=== PATIENT | male | born 1995 | race American Indian/Alaskan Native ===

== ENCOUNTER 2017-09-12 11:27 | Emergency (ER) | payer MEDICAID, OTHER ==
--- NOTE | 2017-09-12 11:51 | EDM.PDOC ---
ED HPI GENERAL MEDICAL PROBLEM - General Chief Complaint: Genitourinary Problem Stated Complaint: [id number] BLADDER PAIN Time Seen by Provider: 09/12/17 11:35 Source of Information: Reports: Patient History Limitations: Reports: No Limitations - History of Present Illness INITIAL COMMENTS - FREE TEXT/NARRATIVE: This 22 yo male patient reports to the ED with lower abdominal pain/pressure over the past 2 days. The patient reports he has not been able to urinate over the past 2 days and has not had a bowel movement. The patient denies any new sexual partners and denies any previous similar episodes. The patient was accompanied in the ED with his girlfriend. Onset: Gradual Duration: Day(s): (2), Constant, Getting Worse Location: Reports: Abdomen (pain and pressure) Quality: Reports: Ache, Pressure Severity: Severe Improves with: Reports: None Worsens with: Reports: Other (palpation) Bladder Pain Score (Numeric/FACES): 8 - Related Data Allergies Allergy/AdvReac Type Severity Reaction Status Date / Time No Known Allergies Allergy Verified 09/12/17 11:35 Home Meds: Home Meds . [No Known Home Meds] 09/12/17 [History] ED ROS GENERAL - Review of Systems Review Of Systems: ROS reveals no pertinent complaints other than HPI. ED EXAM, RENAL/ - Physical Exam Exam: See Below Exam Limited By: No Limitations General Appearance: Alert, WD/WN, Moderate Distress, Thin Eye Exam: Bilateral Eye: EOMI, Normal Inspection, PERRL Ears: Normal External Exam, Normal Canal, Hearing Grossly Normal, Normal TMs Nose: Normal Inspection, Normal Mucosa, No Blood Throat/Mouth: Normal Inspection, Normal Lips, Normal Teeth, Normal Gums, Normal Oropharynx, Normal Voice, No Airway Compromise Head: Atraumatic, Normocephalic Neck: Normal Inspection, Supple, Non-Tender, Full Range of Motion Respiratory/Chest: No Respiratory Distress, Lungs Clear, Normal Breath Sounds, No Accessory Muscle Use, Chest Non-Tender Cardiovascular: Normal Peripheral Pulses, Regular Rate, Rhythm, No Edema, No Gallop, No JVD, No Murmur, No Rub GI/Abdominal: Normal Bowel Sounds, Soft, Tender (generalized tenderness ( increased over lower abdomen)) (Male) Exam: Deferred Rectal (Males) Exam: Deferred Back Exam: Normal Inspection, Full Range of Motion, NT Extremities: Normal Inspection, Normal Range of Motion, Non-Tender, Normal Capillary Refill, No Pedal Edema Neurological: Alert, Oriented, CN II-XII Intact, Normal Cognition, Normal Gait, Normal Reflexes, No Motor/Sensory Deficits Psychiatric: Normal Affect, Normal Mood Skin Exam: Warm, Dry, Intact, Normal Color, No Rash Lymphatic: No Adenopathy Course - Vital Signs Last Recorded V/S: Last Vital Signs Temp 37.3 C 09/12/17 12:10 Pulse 100 09/12/17 12:10 Resp 16 09/12/17 12:10 BP 149/95 H 09/12/17 12:10 Pulse Ox 99 09/12/17 12:10 - Orders/Labs/Meds Orders: Active Orders 24 hr Category Date Time Status Urinary Catheter Assessment [RC] ASDIRECTED Care 09/12/17 11:57 Active Urinary Catheter Insertion [Insert Urinary Catheter] [ Care 09/12/17 12:00 Ordered OM.PC] Q24H [facility] 09/12/17 12:06 Received Labs: Laboratory Tests 09/12/17 09/12/17 Range/Units 12:06 12:06 Urine Color Yellow (YELLOW) Urine Appearance Slightly cloudy (CLEAR) Urine pH 7.0 (5.0-9.0) Ur Specific [place] 1.020 (1.005-1.030) Urine Protein Negative (NEGATIVE) Urine Glucose (UA) Negative (NEGATIVE) Urine Ketones Negative (NEGATIVE) Urine Occult Blood Negative (NEGATIVE) Urine Nitrite Negative (NEGATIVE) Urine Bilirubin Negative (NEGATIVE) Urine Urobilinogen 2.0 H (0.2-1.0) mg/dL Ur Leukocyte Esterase Negative (NEGATIVE) Urine RBC 0-5 /HPF Urine WBC 0-5 (0-5/HPF) /HPF Ur Epithelial Cells Rare /HPF Amorphous Sediment Moderate (0/HPF) /HPF Urine Bacteria Rare (0-FEW/HPF) /HPF Urine Mucus Rare /LPF Urine Opiates Screen Positive H (NEGATIVE) Ur Oxycodone Screen Negative (NEGATIVE) Urine Methadone Screen Negative (NEGATIVE) Ur Barbiturates Screen Negative (NEGATIVE) U Tricyclic Antidepress Negative (NEGATIVE) Ur Phencyclidine Scrn Negative (NEGATIVE) Ur Amphetamine Screen Negative (NEGATIVE) U Methamphetamines Scrn Negative (NEGATIVE) Urine MDMA Screen Negative (NEGATIVE) U Benzodiazepines Scrn Negative (NEGATIVE) Urine Cocaine Screen Negative (NEGATIVE) U Marijuana (THC) Screen Negative (NEGATIVE) Departure - Departure Time of Disposition: 12:44 Disposition: Home, Self-Care 01 Condition: Fair Clinical Impression: Urinary retention Constipation Qualifiers: Constipation type: other constipation type Qualified Code(s): K59.09 - Other constipation - Discharge Information Instructions: Acute Urinary Retention, Male, [id number], Constipation, Adult Forms: ED Department Discharge Care Plan Goals: The patient was advised of the examination, lab, bladder scan and x-ray results during the visit. The patient was encouraged to attempt to empty his bladder every 2 hours over the next couple of days. The patient should take a daily dose of MiraLax for the next 3-4 days to promote bowel movement. If the patient has any additional symptoms or concerns, the patient should follow-up with his primary care facility or return to the emergency department. - My Orders Last 24 Hours: My Active Orders 09/12/17 11:57 Urinary Catheter Assessment [RC] ASDIRECTED 09/12/17 12:00 Urinary Catheter Insertion [Insert Urinary Catheter] [OM.PC] Q24H 09/12/17 12:06 [facility] - Assessment/Plan Last 24 Hours: My Active Orders 09/12/17 11:57 Urinary Catheter Assessment [RC] ASDIRECTED 09/12/17 12:00 Urinary Catheter Insertion [Insert Urinary Catheter] [OM.PC] Q24H 09/12/17 12:06 [facility]
--- NOTE | 2017-09-12 12:35 | CR ---
Clinical history: 22-year-old male with abdominal pain. Interpretation: Flat and upright films of the abdomen unremarkable. No sign of foreign body, abdominal soft tissue mass lesion, mechanical bowel obstruction or free intr aperitoneal air. Lung bases clear. AP lumbar spine and pelvis and hips unremarkable. CONCLUSION: Negative plain film exam abdomen.
== END 2017-09-12 13:09 | disposition home or self-care (01) ==
LOC: DL.ED 11:27
DX: K59.09 Other constipation (principal); R33.9 Retention of urine, unspecified
CPT/HCPCS: 51701; 51798; 74020; 80305; 81001; 87491; 87591; 99283

== ENCOUNTER 2018-10-11 00:42 | Emergency (ER) | payer OTHER ==
[2018-10-11] MEDS ORDERED: Lidocaine 1% 30 ML SDV INJECT ONE (01:17)
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
== END 2018-10-11 01:48 | disposition home or self-care (01) ==
LOC: DL.ED 00:42
DX: S01.511A Laceration without foreign body of lip, initial encounter (principal); S50.812A Abrasion of left forearm, initial encounter; Y04.0XXA Assault by unarmed brawl or fight, initial encounter
CPT/HCPCS: 12011; 12013; 99283; 99284